=== PATIENT | male | born 1995 | race Caucasian/White ===

== ENCOUNTER 2018-03-13 10:19 | Emergency (ER) | payer SELFPAY | END 2018-03-13 15:05 | disposition home or self-care (01) | LOC: D.ER 10:19 | DX: R20.2 Paresthesia of skin (principal); M70.842 Other soft tissue disorders related to use, overuse and pressure, left hand; Y93.89 Activity, other specified; F17.200 Nicotine dependence, unspecified, uncomplicated ==